=== PATIENT | male | born 1975 | race Caucasian/White ===

== ENCOUNTER → 2019-02-03 11:14 | Outpatient (CLI) | payer OTHER, SELFPAY ==
[2019-02-03 13:01] LABS: BUN Creatinine Ratio 15.6 (6-22); Blood Urea Nitrogen 14 mg/dL (9-20); Calcium 9.8 mg/dL (8.4-10.2); Carbon Dioxide 29 mmol/L (22-32); Chloride 102 mmol/L (98-107); Cholesterol 225 mg/dL (140-199); Estimated Glomerular Filt Rate > 60.0 mL/min (>60); Glucose 103 mg/dL (70-100); HDL Cholesterol 47 mg/dL (40-60); HEMOLYSIS < 15 (0-50); LDL Cholesterol Calculated 148 mg/dL (<100); Potassium 4.8 mmol/L (3.4-5.1); Sodium 140 mmol/L (137-145); Triglycerides 148 mg/dL (35-150)
== END ==
PROVIDERS: PCP Registered Nurse; Visit Provider Registered Nurse
DX: Z00.00 Encounter for general adult medical examination without abnormal findings (principal)
CPT/HCPCS: 36415; 80048; 80061

== ENCOUNTER → 2022-07-03 14:41 | Outpatient (CLI) | payer OTHER, SELFPAY ==
[2022-07-03 16:59] LABS: Cholesterol 205 mg/dL (140-199); HDL Cholesterol 47 mg/dL (40-60); LDL Cholesterol Calculated 133 mg/dL (<100); Triglycerides 127 mg/dL (35-150)
[2022-07-04 16:32] LABS: Hep C Virus Ab w/Reflex Quant NEGATIVE s/c (NEGATIVE)
== END ==
PROVIDERS: PCP Student in an Organized Health Care Education/Training Program; Referring Provider Student in an Organized Health Care Education/Training Program; Visit Provider Student in an Organized Health Care Education/Training Program
DX: Z11.59 Encounter for screening for other viral diseases (principal); Z13.220 Encounter for screening for lipoid disorders
CPT/HCPCS: 36415; 80061; 86803

== ENCOUNTER 2022-09-19 09:04 | Day surgery (SDC) | payer OTHER, SELFPAY ==
--- NOTE | 2022-09-19 | PATH_ITS ---
[facility] Accession Number: [id number] No. of containers..01 Tissue . 01 Material submitted: . cecum - CECAL POLYP . 01 Diagnosis: Cecal Polyp: Sessile serrated adenoma. MRV 09/24/2022 1243 Local . 01 Electronically signed: . Yanick Phan MD, PhD, Pathologist NPI- [id number] . 01 Gross description: . CECAL POLYP: Received in formalin is 1 fragment(s) of santo, soft tissue measuring 1.2 x 0.8 x 0.2 cm submitted entirely in 1 cassette(s) /MARILU 09/20/2022 1833 Local . 01 Pathologist provided ICD-10: D12.0 . 01 CPT . 571469 Performed at: 01 [facility] [address] [place] [address], [place], [place] [id number] MD Spike Sterling MD Phone: [phone]
[2022-09-19 09:25] VITALS: BP 126/84; PULSE 60; RESP 21; TEMP 36.4; O2SAT 100; BMI 62.2
[2022-09-19] MEDS: LACTATED RINGERS 1,000 ML 42 ML IV (09:34)
--- NOTE | 2022-09-19 10:34 | P.HP_ITS ---
History of Present Illness History of Present Illness Date Patient Seen: 09/19/22 Time Patient Seen: 10:34 Chief complaint: Colonoscopy Narrative: Tuan is a 46-year-old man who is here for colonoscopy. He has never had 1 before. No known family history of colon cancer. Other medical problems. [facility] Medical History (Updated 09/19/22 @ 10:35 by Jet Burton MD) Carpal tunnel syndrome (~2009) Central sleep apnea Depression Exercise-induced asthma (06/04/12) Generalized anxiety disorder Moderate mixed hyperlipidemia not requiring statin therapy Obstructive sleep apnea Sarcoidosis (~2000) Seasonal allergies (~1981) Surgical History History of biopsy Family History Father Pulmonary emboli Social History marital status: number of children: 2 household members: spouse and children occupational status: employed Previous occupational history: [employer] sexual history: Monogamous with spouse Smoking Status: Former smoker alcohol intake: current substance use type: does not use during the past year weight has: remained stable well-balanced diet: daily or most days daily servings fruits/ve or more times/day caffeine: Yes Type(s) of exercise: regular exercise and weight lifting frequency: daily Meds Home Medications and Allergies Home Medications Medication Instructions Recorded Confirmed Type Resmed AirSense 10 CPAP #1 ea 08/18/18 09/19/22 History citalopram 10 mg tablet 10 mg PO DAILY #30 tabs 09/09/22 09/19/22 Rx Allergies Allergy/AdvReac Type Severity Reaction Status Date / Time No Known Drug Allergies Allergy Verified 09/19/22 09:25 Exam Vital Signs (past 8 hours): - 09/19/22 09:25 Temperature 97.6 F Pulse Rate 60 Respiratory Rate 21 Blood Pressure 126/84 Pulse Oximetry 100 Oxygen Delivery Method Room Air Oxygen Delivery Method Room Air Const General: healthy appearing Assessment & Plan Assessment and plan (1) Colon cancer screening: Status: Acute Plan We reviewed the risks and benefits of colonoscopy and would like to proceed.
--- NOTE | 2022-09-19 11:21 | PM.OP.COLON ---
Operative Date/Time/Diagnoses Date of procedure: 09/19/22 Time of procedure: 11:21 Pre-op diagnosis: Colon cancer screening Post-op diagnosis: same Procedure & Clinicians Study performed: Colonoscopy Same procedure as scheduled: Yes Surgeon: Jet Burton Procedure Notes Procedure in detail: Surgeon: Jet Burton MD Anesthesia: Sanna Marie MD Procedure: The patient was brought to the endoscopy suite, placed in left lateral decubitus position. The patient was connected to monitoring devices. A time-out was performed. Sedation was administered. Once the patient was adequately sedated, a digital rectal exam was performed and was normal. The scope was then inserted and advanced to the cecum where the appendiceal orifice was identified and photographed. Terminal ileum was intubated and no abnormalities were seen. The scope was then slowly withdrawn over greater than 6 minutes. The mucosa was thoroughly inspected. There was a 1 cm flat polyp in the cecum removed with a cold snare. The rest of the colon was normal. The scope was retroflexed in the rectum. No other abnormalities were seen. The scope was straightened and removed. The patient was awakened and brought to recovery. Scope withdrawal time: 7 minutes Sedation time: 9 minutes EBL: 2 mL Findings: 1 cm cecal polyp Post-procedure Disposition: PACU
[2022-09-19 11:25] VITALS: BP 110/74; PULSE 58; RESP 16; TEMP 36.8; O2SAT 98
[2022-09-19 11:36] VITALS: BP 116/81; PULSE 52; RESP 16; TEMP 36.8; O2SAT 98
[2022-09-19 11:47] VITALS: BP 110/70; PULSE 50; RESP 16; TEMP 36.8
== END 2022-09-19 11:51 | disposition home or self-care (01) ==
PROVIDERS: PCP Student in an Organized Health Care Education/Training Program; Referring Provider Surgery; Visit Provider Surgery
PROC: 0DJD8ZZ Inspection of Lower Intestinal Tract, Via Natural or Artificial Opening Endoscopic (ICD-10-PCS; CPT 45378; principal; 2022-09-19 10:15)
DX: Z12.11 Encounter for screening for malignant neoplasm of colon (principal); D12.0 Benign neoplasm of cecum
CPT/HCPCS: 45385; J2704